=== PATIENT | female | born 1985 | race Caucasian/White ===

== ENCOUNTER 2017-07-28 08:21 | Inpatient (IN) | payer OTHER ==
[2017-07-28] VITALS (9 sets, daily range): BP systolic 105–117; BP diastolic 55–67; PULSE 56–121; RESP 16–19; TEMP 97.5–97.7; O2SAT 99–100
[~2017-07-28] VITALS: Ht 162.6 cm; Wt 111.0 kg
[~2017-07-28 08:21] MED LIST: OXYC1SOL5 PO; PREN0.01 PO
[2017-07-28] MEDS ORDERED: LACTATED RINGER'S 1000 ML INJ 1,000 ML IV ONE (08:56)
--- NOTE | 2017-07-28 09:03 | PD ---
HPI Chief Complaint Scheduled Date Seen: Jul 28, 2017 Travel History International Travel<30 Days: No Contact w/Intl Traveler<30Days: No Known Affected Area: No History of Present Illness HPI The patient is a 32 year old at 38/3 weeks gestation here for her scheduled repeat . The patient had two prior c-sections she states both of which were 6 pounds with uncomplicated pregnancies and deliveries intraoperatively. She states her first was done due to failure to progress and her second due to a breech presentation. She denies any medical issues or other previous surgeries. She states she develops hives when receiving penicillin and as such she has not been given penicillins since she was a child. She denies any other medication allergies. Negative tobacco, etoh, or illicit substances use. She does not have any specific complaints. She is GBS positive. She denies leakage of fluid, or contractions. Para: 2 : 3 History Past Medical History Medical History: Denies Significant Hx Obstetric History Obstetric History Two prior c-sections, uncomplicated Previous two pregnancies with 6 pound infants Past Surgical History Narrative Surgical x2 Family History Family History: Negative Social History Alcohol Use: No Tobacco Use: No Substance Abuse: No Allergies-Medications (Allergen,Severity, Reaction): Coded Allergies: penicillin G (Unverified Allergy, Severe, RASH, HIVES, DIFFICULTY BREATHING, 11/18/16) Home Meds Reported Medications Multivit/Min/Fol Ac/Iron/Pren ( Vit ( Plus)) 27 Mg Iron-1 Mg Tab , 1 TAB PO DAILY 08/06/11 Discontinued Scripts Oxycodone W/ Acetaminophen (Oxycodone/Acetaminophen 5-325 mg/5Ml) 1 Tab Tab, 1 TAB PO Q4H Y for PAIN SCALE 3 TO 5, #30 TAB Prov:Jina Domingo MD 02/06/15 Review of Systems Except as stated in HPI: all other systems reviewed are Neg Physical Exam Narrative GENERAL: Well-nourished, well-developed patient. SKIN: Warm and dry. HEAD: Normocephalic and atraumatic. EYES: No scleral icterus. No injection or drainage. ENT: No nasal drainage noted. Mucous membranes pink. Airway patent. NECK: Supple, trachea midline. No JVD. CARDIOVASCULAR: Regular rate and rhythm without murmurs, gallops, or rubs. RESPIRATORY: Breath sounds equal bilaterally. No accessory muscle use. ABDOMEN/GI: Abdomen soft, non-tender, no rebound, no guarding Gravid to 39 weeks size Uterine Contractions: none on tocometer FHT's: Category: I Baseline: 130s bpm Reactive: +accels Variability: moderate Decels: none EXTREMITIES: No cyanosis or edema. BACK: Nontender without obvious deformity. NEUROLOGICAL: Awake and alert. Motor and sensory grossly within normal limits. Normal speech. Data Data Vital Signs Reviewed: Yes Orders Orders Admit To Inpatient (07/28/17 ) Code Status (07/28/17 08:56) Vital Signs (Adult) .ON ADMISSION (07/28/17 08:56) Activity Oob Ad Luz (07/28/17 08:56) Heart (07/28/17 08:56) Urinary Catheter Management ELIZABETH.Q8H (07/28/17 08:56) ^ Preps (07/28/17 08:56) Scd / Oneil / Foot Pump ELIZABETH.QSHIFT (07/28/17 08:56) ^ Ultrasound For Locatio (07/28/17 08:56) Diet Npo (07/28/17 Breakfast) Lactated Ringer's 1000 Ml Inj (Lr 1000 M (07/28/17 08:56) Lactated Ringer's 1000 Ml Inj (Lr 1000 M (07/28/17 09:26) Citric Acid-Sodium Citrate Liq (Bicitra (07/28/17 10:30) Type And Screen (07/28/17 08:56) Complete Blood Count With Diff (07/28/17 08:56) Urinalysis - C+S If Indicated (07/28/17 08:56) Drug Screen, Random Urine (07/28/17 08:56) Inpatient Certification (07/28/17 ) Specimen To Be Collected PRN (07/28/17 08:56) Specimen To Be Collected PRN (07/28/17 08:56) Group B Strep: Positive MDM Medical Record Reviewed: Yes Plan 32 year old at 38/3 weeks gestation here for her scheduled repeat c- section at 10:30. - Category I tracing - Check preop labs cbc, type and screen, UA, UDS - Ancef 3 gm IV for perioperative prophylaxis dw OB Hospitalist Amish King MD R2 Jul 28, 2017 09:03
[2017-07-28] MEDS: LACTATED RINGER'S 1000 ML INJ 1,000 ML IV SCH ×4 (09:26→22:12)
[2017-07-28 09:43] LABS: BASOPHIL % 0.4 % (0.0-2.0); EOSINOPHIL # 0.1 TH/MM3 (0-0.4); EOSINOPHIL % 0.7 % (0.0-4.0); HEMATOCRIT 39.3 % (35.0-46.0); HEMOGLOBIN 12.8 GM/DL (11.6-15.3); LYMPH % 17.6 % (9.0-44.0); LYMPHOCYTE # 1.9 TH/MM3 (1.0-4.8); MEAN CELL VOLUME 73.6 FL (80.0-100.0); MEAN CORPUSCULAR HGB CONC 32.7 % (32.0-36.0); MEAN PLATELET VOLUME 10.1 FL (7.0-11.0); MONOCYTE # 0.9 TH/MM3 (0-0.9); NEUT % 73.3 % (16.0-70.0); PLATELET COUNT 255 TH/MM3 (150-450); RED BLOOD COUNT 5.34 MIL/MM3 (4.00-5.30); RED CELL DISTRIBUTION WIDTH 15.9 % (11.6-17.2)
[2017-07-28 09:56] LABS: BACTERIA, URINE RARE /hpf; BILIRUBIN, URINE NEG (NEG); BLOOD, URINE NEG (NEG); GLUCOSE,URINE NEG (NEG); KETONE, URINE NEG (NEG); MUCUS URINE FEW /lpf (OCC); NITRITE,URINE NEG (NEG); SQUAMOUS EPITHELIAL CELL URINE 14 /hpf (0-5); URINE COLOR YELLOW (YELLW/STRAW); URINE LEUKOCYTE ESTERASE MOD (NEG)
[2017-07-28] MEDS ORDERED: MORPHINE SULFATE PF 5 MG/10 ML VIAL ONE (10:23)
[2017-07-28] MEDS ORDERED: CITRIC ACID-SODIUM CITRATE LIQ 30 ML UDC PO SCH (10:30)
--- NOTE | 2017-07-28 11:10 | HHI.PR ---
Subjective Remarks OB Attending The patient is a 32-year-old 002 with IUP at 39 weeks. She presents for repeat delivery and bilateral tubal ligation. The risks, benefits, and alternatives were discussed with the patient at length. Risks include but are not limited to pain, infection, bleeding, injury to other organs like the bladder, bowels, nerves, vessels, injury to the baby, need for the operation, need for hysterectomy, need for a blood transfusion, wound infection or breakdown risks. Patient stated that she desired permanent surgical sterilization. We discussed the risks that include permanent nature of the procedure and the inability to have future biological children. We discussed that the procedure cannot be reversed. We discussed alternative methods including but not limited to long-acting contraceptive devices, OCPs, patch, and others. We discussed the risk of 1% failure rate which could result in an ectopic that may require emergency surgery. The tubal papers are mature. All patient's questions were answered and consent was signed. Objective Vital Signs Date Time Temp Pulse Resp B/P (MAP) Pulse Ox O2 Delivery O2 Flow Rate FiO2 07/28/17 08:55 82 07/28/17 08:50 121 07/28/17 08:45 88 Result Diagram: 07/28/17 0843 Ashely Quiroz MD Jul 28, 2017 11:10
[2017-07-28] MEDS ORDERED: ceFAZolin 2 GM PREMIX 50 ML IV SCH (11:15)
[2017-07-28] MEDS ORDERED: ePHEDrine/NS 25 MG/5 ML SYRINGE IV ONE (12:00)
[2017-07-28] MEDS ORDERED: ONDANSETRON HCL 4 MG/2 ML VIAL IV ONE (12:00)
[2017-07-28] MEDS ORDERED: OXYTOCIN 10 UNIT/ML AMP IV ONE (12:00)
[2017-07-28] MEDS ORDERED: LIDOCAINE HCL 1% PF 5 ML SYRINGE OTHER ONE (12:00)
[2017-07-28] MEDS ORDERED: ceFAZolin INJ 1,000 MG VIAL IV ONE (12:00)
[2017-07-28] MEDS ORDERED: DEXAMETHASONE SOD PHOS 4 MG/ML VIAL IV ONE (12:00)
[2017-07-28] MEDS ORDERED: PROPOFOL 200 MG/20 ML AMP IV ONE (12:00)
[2017-07-28] MEDS ORDERED: PHENYLEPH/NS 1000 MCG/10 ML SYR IV ONE (12:00)
--- NOTE | 2017-07-28 15:42 | PD.OB.DELI ---
Procedure Note Section Procedure Performed by Ashely Quiroz Procedure: Repeat Low Transverse Sec Indication for delivery: Desired elective repeat Previous condition: None Informed consent obtained: For anesthesia, For procedure Confirmed correct: Patient, Procedure, Site, Time-out taken Anesthesia: Spinal Medication prior to procedure: As documented in eMAR Monitoring during procedure: Blood pressure monitoring, laboratory monitor, doppler Urinary catheter: Inserted using sterile technique, To dependent drainage, ml urine output (300cc) Sterile preparation: Other (chloraprep) Position: Supine with wedge to left side Operative Features Skin Incision: Pfannenstiel Uterine Incision: Low transverse w/knife / blunt ext, Other (3-4 cm lower uterine segment extension) Membranes Ruptured: Artificially Presentation: Occiput anterior Delivery date: Jul 28, 2017 Delivery time: 13:03 Delivery of infant: Uneventful : Male One Minute : 9 Five Minute : 9 Status of infant: Viable Placenta delivered: Intact Medications: Antibiotics, Oxytocin Estimated blood loss: 700 Procedure tolerated: Well Maternal Condition: Stable Condition: Stable Procedure in detail See dictation Ashely Quiroz MD Jul 28, 2017 15:42
[2017-07-28] MEDS ORDERED: SODIUM CHLORIDE 0.9% FLUSH 10 ML FLUSH IV FLUSH PRN (16:30)
[2017-07-28] MEDS ORDERED: ONDANSETRON HCL 4 MG/2 ML VIAL IV PUSH PRN (16:30)
[2017-07-28] MEDS ORDERED: OXYTOCIN 30 UNITS-500ML PREMIX 500 ML IV ONE (16:30)
[2017-07-28] MEDS ORDERED: ACETAMINOPHEN 325 MG TAB PO PRN (16:30)
[2017-07-28] MEDS ORDERED: SIMETHICONE 80 MG CHEWABLE TAB PO PRN (16:30)
[2017-07-28] MEDS ORDERED: EPIDURAL-DIPHENHYDRAMINE HCL 50 MG/ML VIAL IV PUSH PRN (17:15)
[2017-07-28] MEDS ORDERED: EPIDURAL-DO NOT ADMINISTER ANTICOAGULANTS PRN (17:15)
[2017-07-28] MEDS ORDERED: EPIDURAL-NALOXONE HCL 0.4 MG/ML AMP IV PUSH PRN (17:15)
[2017-07-28] MEDS ORDERED: EPIDURAL-NO SYSTEMIC NARCOTICS PRN (17:15)
[2017-07-28] MEDS: SODIUM CHLORIDE 0.9% FLUSH 10 ML FLUSH IV FLUSH SCH (19:10)
[2017-07-28] MEDS: EPIDURAL-DIPHENHYDRAMINE HCL 50 MG CAP PO PRN (19:37)
[2017-07-28] MEDS ORDERED: ZOLPIDEM TARTRATE 5 MG TAB PO PRN (21:00)
[2017-07-28] MEDS ORDERED: OXYTOCIN 30 UNITS-500ML PREMIX 500 ML IV PRN (21:30)
[2017-07-29 00:18] VITALS: BP 109/67; PULSE 66; RESP 19; TEMP 97.9
--- NOTE | 2017-07-29 01:15 | MP ---
cc: Ashely Quiroz MD DATE OF OPERATION: 07/28/2017 DATE OF PROCEDURE: 07/28/2017. PREOPERATIVE DIAGNOSES: 1. Intrauterine at 39.1. 2. Obesity. 3. Prior delivery x2. 4. Undesired fertility. POSTOPERATIVE DIAGNOSES: 1. Intrauterine at 39.1. 2. Obesity. 3. Prior delivery x2. 4. Undesired fertility. PROCEDURE PERFORMED: 1. Repeat low transverse section with 1 layer closure and closure of a 3-4 cm lower uterine segment extension via Pfannenstiel skin incision. 2. Bilateral partial salpingectomy. 3. Retrograde instillation of the bladder with sterile milk. 4. Placement of hemostatic agent with Socorro. FINDINGS: Viable male infant in the cephalic presentation with Apgars ____ and weight ____. The bladder was densely adherent to the lower uterine segment and the anterior abdominal wall. The rectus muscles were densely adherent to the fascia. The left fallopian tube was adherent to the mesosalpinx. The right fallopian tube was densely adherent to the mesosalpinx. INDICATIONS: The patient is a 32-year-old G3, P2-0-0-2, who presented for a repeat delivery and tubal ligation. ATTENDING SURGEON: Dr. Ashely Quiroz ASSISTANTS: Nieves Ramírez, Marizol Hand, Courtney Spicer. SPECIMENS REMOVED: Placenta and bilateral tube segments. ESTIMATED BLOOD LOSS: 700 mL. URINE OUTPUT: 300 mL of clear urine at the end of the procedure. INTRAVENOUS FLUIDS: As per anesthesia record. PROCEDURE DESCRIPTION: After obtaining informed consent with risks, benefits and alternatives discussed at length, including but not limited to pain, infection, bleeding, injury to other organs like the bladder, bowel, nerves and vessels, injury to the baby, need for repeat operation, need for hysterectomy, need for a blood transfusion, wound infection or breakdown, as well as the risks associated with permanent surgical sterilization including the irreversible and permanent nature of the procedure, the risk of tubal regret, the risk of failure of approximately 1% which could result in an ectopic that may require emergency surgery, and other possible risks, the patient was taken to the operating room, where she underwent spinal anesthesia without difficulty. She was placed in the dorsal supine position with a leftward tilt, and reassuring heart tones were confirmed. A Yu catheter was placed and the patient was prepped and draped in normal sterile fashion. A timeout procedure was performed. After once again confirming adequate anesthesia, a Pfannenstiel skin incision was made with the scalpel and carried down to the level of the fascia. The fascia was nicked in the midline with the scalpel and the fascial incision extended laterally with the curved Calero scissors. The Bharati clamps were applied to the superior aspect of the fascial incision and the rectus muscles were noted to be densely adherent. The rectus muscles were carefully dissected off of the overlying fascia with sharp dissection. The Bharati clamps were applied to the inferior aspect of the fascial incision and it was dissected off in a similar fashion. The peritoneum was grasped with pickups and entered sharply with the Metzenbaum scissors. This incision was extended bluntly. The Ion self-containing wound retractor was placed and the bladder was noted to be densely adherent to the lower uterine segment. The vesicouterine peritoneum was identified, grasped with pickups, and entered sharply with the Metzenbaum scissors. The bladder flap was created digitally and with blunt dissection. Lower uterine segment was incised with the scalpel and a hysterotomy created bluntly. The hysterotomy was extended bluntly. The vertex was elevated to the level of the hysterotomy and the vertex delivered atraumatically, followed by atraumatic delivery of the remainder of the . After a 45-second delay, the cord was doubly clamped and cut and the handed off to the waiting neonatology team. The placenta was removed manually and the uterus was cleared of all clots and debris. A 3-4 cm lower uterine segment extension was noted, which was repaired with 2-0 Vicryl. The remainder of the hysterotomy was repaired with a #1 chromic in a running locked fashion. Excellent hemostasis was noted; however, the tissue was noted to be very friable. Attention was turned to the bilateral tubal portion of the procedure. Both tubes were adherent to the mesosalpinx and the right fallopian tube was completely wrapped. After about 4 cm of tube, the remainder of the tube was wrapped in the mesosalpinx. We discussed with the patient that we may not be able to complete the tubal but we would attempt it. Approximately a 4 cm segment of fallopian tube was suture ligated and transected, with approximately 2-3 cm sent to pathology. This was done in a location that was approximately 1 cm from the insertion into the uterus. Both ostia were appreciated and noted to be hemostatic. Attention was turned to the right fallopian tube, which was suture ligated and transected in a similar fashion. The uterus was gently returned to the abdomen and all 4 ostia were appreciated and noted to be hemostatic. The hysterotomy was reinspected and noted to be hemostatic, however. The bladder was retrograde instilled with 240 mL of sterile milk and the bladder noted to be intact. The hysterotomy was reinspected, and due to the friable nature of the tissue by the bladder flap and the incision, Socorro was placed. The rectus muscles were examined and noted to be hemostatic. The fascia was reapproximated with #1 Vicryl in a running fashion. The subcutaneous tissue was irrigated with warm normal saline and noted to be hemostatic. The subcutaneous tissue was closed ____ with 3-0 plain gut in an interrupted fashion. The skin edges were reapproximated with 3-0 Monocryl in a subcuticular fashion. Dermabond and a pressure dressing were placed. All sponge, lap, and needle counts were correct x4. I performed the entire procedure myself. The patient was taken to PACU in stable condition. MD SHORTY Mcmanus/MARY , 12:00 AM , 01:14 AM
[2017-07-29] MEDS: IBUPROFEN 600 MG TAB PO PRN ×4 (01:23→23:32)
[2017-07-29] MEDS: DOCUSATE SODIUM 50 MG/SENNA 8.6 MG TAB PO PRN ×2 (01:23→15:01)
[2017-07-29] MEDS: oxyCODONE/ACETAMINOPHEN 5 MG/325 MG TAB PO PRN ×6 (01:23→23:32)
[2017-07-29] MEDS: LACTATED RINGER'S 1000 ML INJ 1,000 ML IV SCH ×3 (03:40→19:10)
[2017-07-29 04:35] VITALS: BP 112/64; PULSE 74; RESP 18; TEMP 98
[2017-07-29 06:04] LABS: AUTOMATED NEUTROPHIL # 11.5 TH/MM3 (1.8-7.7); BASOPHIL % 0.2 % (0.0-2.0); EOSINOPHIL % 0.2 % (0.0-4.0); HEMATOCRIT 30.2 % (35.0-46.0); HEMOGLOBIN 9.8 GM/DL (11.6-15.3); LYMPH % 13.8 % (9.0-44.0); MEAN CELL VOLUME 72.7 FL (80.0-100.0); MEAN CORPUSCULAR HEMOGLOBIN 23.6 PG (27.0-34.0); MEAN CORPUSCULAR HGB CONC 32.5 % (32.0-36.0); MEAN PLATELET VOLUME 9.3 FL (7.0-11.0); MONO % 5.5 % (0.0-8.0); MONOCYTE # 0.8 TH/MM3 (0-0.9); NEUT % 80.3 % (16.0-70.0); PLATELET COUNT 205 TH/MM3 (150-450); RED BLOOD COUNT 4.16 MIL/MM3 (4.00-5.30); RED CELL DISTRIBUTION WIDTH 15.6 % (11.6-17.2); WHITE BLOOD COUNT 14.3 TH/MM3 (4.0-11.0)
[2017-07-29] MEDS: EPIDURAL-DIPHENHYDRAMINE HCL 50 MG CAP PO PRN (06:20)
[2017-07-29 08:00] VITALS: BP 105/58; PULSE 66; RESP 18; TEMP 98.8
--- NOTE | 2017-07-29 08:10 | HHI.OB ---
Subjective Post Operative Day: 1 Remarks Patient seen and examined this AM. Afebrile, vitals stable. Patient states her pain has been controlled. Ambulating well within room without issues. Tolerating diet, no nausea or vomiting. She states she has not yet passed flatus. No BMs. She denies drainage or bleeding from her incision site. She is her baby. Reports some issues with latching, workers compensation consultant has already met with the patient. Reports her vaginal bleeding as light. Denies fevers, chest pain, dyspnea, cough. Objective Vitals/I&O Vital Signs Date Time Temp Pulse Resp B/P (MAP) Pulse Ox O2 Delivery O2 Flow Rate FiO2 07/29/17 04:35 98.0 74 18 112/64 (80) 07/29/17 00:18 97.9 66 19 109/67 (81) 07/28/17 20:32 97.5 71 18 117/67 (84) 07/28/17 15:33 97.7 07/28/17 15:16 105/64 (78) 07/28/17 15:16 56 19 100 07/28/17 15:05 60 115/55 (75) 07/28/17 15:05 18 100 07/28/17 14:45 63 110/55 (73) 07/28/17 14:45 17 99 07/28/17 14:35 97.6 62 16 114/55 (74) 99 07/28/17 08:55 82 07/28/17 08:50 121 07/28/17 08:45 88 Result Diagram: 07/29/17 0542 Objective Remarks GENERAL: Well-nourished, well-developed patient. CARDIOVASCULAR: Regular rate and rhythm without murmurs, gallops, or rubs. RESPIRATORY: Breath sounds equal bilaterally. No accessory muscle use. ABDOMEN/GI: Abdomen soft, non-tender, bowel sounds present. Incision: Covered by bandage. Appearing dry. Fundus: Firm, non-tender at umbilicus. GENITOURINARY: Light to moderate bleeding. EXTREMITIES: No cyanosis or edema, non-tender, without signs of DVT. Medications and IVs Current Medications Medications (Trade) Dose Ordered Sig/Anthony Route Start Time Stop Time Status Last Admin Lactated Ringer's 1,000 ml @ 150 mls/hr Q6H40M IV 07/28/17 09:26 07/28/17 09:26 (Bicitra Liq) 30 ml ATTRACTION WORKER PO 07/28/17 10:30 08/01/17 10:29 07/28/17 15:08 Cefazolin Sodium/ Dextrose 50 ml @ 100 mls/hr ATTRACTION WORKER IV 07/28/17 11:15 08/01/17 11:14 Lactated Ringer's 1,000 ml @ 100 mls/hr Q10H IV 07/28/17 21:17 07/29/17 17:16 07/28/17 21:17 Oxytocin 500 ml @ 100 mls/hr UNSCH X1 PRN IV 07/28/17 21:30 07/29/17 21:29 (NS Flush) 2 ml BID IV FLUSH 07/28/17 21:00 (NS Flush) 2 ml UNSCH PRN IV FLUSH 07/28/17 16:30 (Mylicon Chew) 80 mg QID PRN PO 07/28/17 16:30 (Tylenol) 650 mg Q6H PRN PO 07/28/17 16:30 (Motrin) 600 mg Q6H PRN PO 07/28/17 16:30 07/29/17 01:23 (Percocet 5-325 Mg) 1 tab Q4H PRN PO 07/28/17 16:30 07/29/17 06:20 (Percocet 5-325 Mg) 2 tab Q4H PRN PO 07/28/17 16:30 07/29/17 01:23 (Charlotte-Colace) 2 tab Q12H PRN PO 07/28/17 16:30 07/29/17 01:23 (Ambien) 5 mg HS PRN PO 07/28/17 21:00 (M-M-R Ii Inj) 0.5 ml ONCE ONCE SQ 07/29/17 16:00 07/29/17 16:01 (Boostrix Inj) 0.5 ml ONCE ONCE IM 07/29/17 16:00 07/29/17 16:01 (Zofran Inj) 4 mg Q6H PRN IV PUSH 07/28/17 16:30 07/28/17 19:51 Miscellaneous Information NO SYSTEMIC NARCOTICS TO BE GIVEN FO... UNSCH PRN .XX 07/28/17 17:15 07/29/17 17:14 (Narcan Inj) 0.4 mg UNSCH PRN IV PUSH 07/28/17 17:15 07/29/17 17:14 (Benadryl Inj) 25 mg Q6H PRN IV PUSH 07/28/17 17:15 07/29/17 17:14 (Benadryl) 50 mg Q6H PRN PO 07/28/17 17:15 07/29/17 17:14 07/29/17 06:20 Miscellaneous Information ALL NURSING DEPARTMENTS UNSCH PRN .XX 07/28/17 17:15 07/29/17 17:14 Assessment/Plan Problem List: (1) care following delivery ICD Codes: Z39.2 - Encounter for routine follow-up Assessment and Plan 32 year-old now POD#1 s/p repeat . 1. Postoperative Care - AFVSS - Incision covered by bandage, appearing dry, will recheck - Postop H&H 9.8, from 12.8 preop - Percocet and Motrin prn pain - Encouraged OOB, as tolerated - Advised pelvic rest x 6 weeks - Continue - Contraception: s/p BTL - Instructed patient to follow up in 1 week with OB provider for incision check after hospital discharge wdw OB Hospitalist Discharge Planning Anticipate discharge home in 1-2 days pending stable clinical course Amish King MD R2 Jul 29, 2017 08:10
[2017-07-29] MEDS ORDERED: MEASLES, MUMPS, RUBELLA VACCINE 0.5 ML VIAL SQ ONE (16:00)
[2017-07-29] MEDS ORDERED: DIPHTH/TETANUS/ACEL PERTUSSIS (BOOSTER) 0.5 ML VIAL/PFS IM ONE (16:00)
[2017-07-29] MEDS: SODIUM CHLORIDE 0.9% FLUSH 10 ML FLUSH IV FLUSH SCH (19:11)
[2017-07-29 20:00] VITALS: BP 102/66; PULSE 89; RESP 18; TEMP 98
[2017-07-30] MEDS: DOCUSATE SODIUM 50 MG/SENNA 8.6 MG TAB PO PRN (04:42)
[2017-07-30] MEDS: oxyCODONE/ACETAMINOPHEN 5 MG/325 MG TAB PO PRN ×2 (04:43→11:33)
--- NOTE | 2017-07-30 07:23 | HHI.OB ---
Subjective Post Operative Day: 2 Remarks Patient seen and examined this AM. Afebrile, vitals stable. Patient states her pain is controlled. Ambulating well within room without issues. Tolerating diet , without nausea or vomiting. She states she has not yet passed flatus. Denies BMs. She states she is voiding without issues. She denies drainage or bleeding from her incision site. She is her baby. She reports her vaginal bleeding as light. Denies fevers, chest pain, dyspnea, cough. Objective Vitals/I&O Vital Signs Date Time Temp Pulse Resp B/P (MAP) Pulse Ox O2 Delivery O2 Flow Rate FiO2 07/29/17 20:00 98.0 89 18 102/66 (78) 07/29/17 08:00 18 07/29/17 08:00 66 105/58 (74) 07/29/17 08:00 98.8 Result Diagram: 07/29/17 0542 Objective Remarks GENERAL: Well-nourished, well-developed patient. CARDIOVASCULAR: Regular rate and rhythm without murmurs, gallops, or rubs. RESPIRATORY: Breath sounds equal bilaterally. No accessory muscle use. ABDOMEN/GI: Abdomen soft, non-tender, bowel sounds present. Incision: clean, dry, intact Fundus: Firm, non-tender at umbilicus. GENITOURINARY: Light to moderate bleeding. EXTREMITIES: No cyanosis or edema, non-tender, without signs of DVT. Medications and IVs Current Medications Medications (Trade) Dose Ordered Sig/Anthony Route Start Time Stop Time Status Last Admin Lactated Ringer's 1,000 ml @ 150 mls/hr Q6H40M IV 07/28/17 09:26 07/28/17 09:26 (Bicitra Liq) 30 ml SALVAGE LABORER PO 07/28/17 10:30 08/01/17 10:29 07/28/17 15:08 Cefazolin Sodium/ Dextrose 50 ml @ 100 mls/hr SAL[employer]AGE LABORER IV 07/28/17 11:15 08/01/17 11:14 (NS Flush) 2 ml BID IV FLUSH 07/28/17 21:00 (NS Flush) 2 ml UNSCH PRN IV FLUSH 07/28/17 16:30 (Mylicon Chew) 80 mg QID PRN PO 07/28/17 16:30 (Tylenol) 650 mg Q6H PRN PO 07/28/17 16:30 (Motrin) 600 mg Q6H PRN PO 07/28/17 16:30 07/29/17 23:32 (Percocet 5-325 Mg) 1 tab Q4H PRN PO 07/28/17 16:30 07/29/17 06:20 (Percocet 5-325 Mg) 2 tab Q4H PRN PO 07/28/17 16:30 07/30/17 04:43 (Charlotte-Colace) 2 tab Q12H PRN PO 07/28/17 16:30 07/30/17 04:42 (Ambien) 5 mg HS PRN PO 07/28/17 21:00 (Zofran Inj) 4 mg Q6H PRN IV PUSH 07/28/17 16:30 07/28/17 19:51 Assessment/Plan Problem List: (1) care following delivery ICD Codes: Z39.2 - Encounter for routine follow-up Assessment and Plan 32 year-old now POD#2 s/p repeat . 1. Postoperative Care - AFVSS - Incision c/d/i - Postop H&H 9.8, from 12.8 preop - Percocet and Motrin prn pain - Encouraged OOB, as tolerated - Advised pelvic rest x 6 weeks - Continue - Contraception: s/p BTL - Instructed patient to follow up in 1 week with OB provider for incision check after hospital discharge wdw OB Hospitalist Discharge Planning Anticipate discharge home today or 07/31 pending stable clinical course Amish King MD R2 Jul 30, 2017 07:23
[2017-07-30] MEDS ORDERED: OXYC1TAB63 PO (08:22)
[2017-07-30] MEDS ORDERED: PERI PO (08:22)
[2017-07-30] MEDS ORDERED: IBUP-232 PO (08:24)
[2017-07-30] MEDS: SODIUM CHLORIDE 0.9% FLUSH 10 ML FLUSH IV FLUSH SCH (09:07)
--- NOTE | 2017-07-30 10:09 | HHI.DCPOC ---
Discharge Care Plan Diagnosis: (1) care following delivery Report Symptoms to Your Doctor -Temperature above 100.5 degrees -Redness, of incision or excessive or foul smelling drainage -Unusual pain or calf pain -Increased vaginal bleeding -Painful or difficulty urinating -Feelings of extreme sadness or anxiety after 2 weeks Goals to Promote Your Health * To maintain your health at the optimal level, follow up with your OB provider within one week after hospital discharge. Directions to Meet Your Goals Take your medications as prescribed Follow your dietary instruction Follow activity as directed Ensure plenty of rest for recovery Drink fluids for hydration Keep your appointments as scheduled Take your immunizations and boosters as scheduled If your symptoms worsen call your PCP, if no PCP go to Urgent Care Center or Emergency Room Smoking is Dangerous to Your Health. Avoid second hand smoke Call the 24-hour crisis hotline for domestic abuse at Amish King MD R2 Jul 30, 2017 10:09
[2017-07-30] MEDS: IBUPROFEN 600 MG TAB PO PRN (11:33)
[2017-07-30] MEDS: LACTATED RINGER'S 1000 ML INJ 1,000 ML IV SCH (14:50)
== END 2017-07-30 17:55 | disposition home or self-care (01) | DRG 765 ==
LOC: H2EB 08:21 → H1EA 16:00
PROVIDERS: ADMIT Obstetrics & Gynecology; ATTEND Obstetrics & Gynecology
PROC: 10D00Z1 Extraction of Products of Conception, Low, Open Approach (ICD-10-PCS; principal; 2017-07-28)
PROC: 0UB70ZZ Excision of Bilateral Fallopian Tubes, Open Approach (ICD-10-PCS; 2017-07-28)
PROC: 3E0K7KZ Introduction of Other Diagnostic Substance into Genitourinary Tract, Via Natural or Artificial Opening (ICD-10-PCS; 2017-07-28)
DX: O34.211 Maternal care for low transverse scar from previous cesarean delivery (principal); Z68.41 Body mass index [BMI] 40.0-44.9, adult; E66.9 Obesity, unspecified; O99.214 Obesity complicating childbirth; N73.6 Female pelvic peritoneal adhesions (postinfective); O99.89 Other specified diseases and conditions complicating pregnancy, childbirth and the puerperium; Z30.2 Encounter for sterilization; Z37.0 Single live birth; Z3A.39 39 weeks gestation of pregnancy; Z88.0 Allergy status to penicillin
CPT/HCPCS: 59025; 80307; 81001; 85025; 86850; 86900; 86901; 88302; J0690; J1100; J2274; J2370; J2405; J2590; J3010; J7120; Q0163